=== PATIENT | male | born 1975 | race Caucasian/White ===

== ENCOUNTER 2025-02-09 08:16 | Outpatient (CLI) | payer BC, SELFPAY ==
--- NOTE | 2025-02-09 09:58 | P.ANES_ITS ---
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
--- NOTE | 2025-02-09 09:58 | W.ANESCHARGE ---
Anesthesia Charges Start Date/Time Anesthesia Start Date: 02/09/25 Anesthesia Start Time: 09:20 Stop Date/Time Anesthesia Stop Date: 02/09/25 Anesthesia Stop Time: 09:53 Coding CPT Codes CPT Codes: ANES LWR INTST NDSC NOS - [id number] ([id number]) QZ - FLOOR WORKER TRANSFER BAY SVC W/O LEACH TANK TENDER BY , P2 - PATIENT W/MILD SYST DISEASE
== END 2025-02-09 08:17 | disposition home or self-care (01) ==
LOC: OP CLINIC 08:19
PROVIDERS: Visit Provider Internal Medicine Gastroenterology
DX: Z12.11 Encounter for screening for malignant neoplasm of colon (principal); D12.2 Benign neoplasm of ascending colon; D12.0 Benign neoplasm of cecum; D12.3 Benign neoplasm of transverse colon
CPT/HCPCS: 00811; 00812; 45385; 88305; J2704